=== PATIENT | female | born 2000 | race Caucasian/White ===

== ENCOUNTER 2023-09-06 10:51 | Emergency (ER) | payer BC ==
[2023-09-06 11:01] VITALS: BMI 20.4
[2023-09-06] MEDS: SODIUM CHLORIDE 0.9% 500 ML INFUS.BAG IV ONE (12:41)
[2023-09-06 13:05] LABS: BASO % 0.4 % (0-2.0); HEMATOCRIT 42.6 % (32.4-45.2); HEMOGLOBIN 14.5 GM/dL (10.7-15.3); LYMPH % 11.5 % (8-40); MCH 30.8 pg (25.7-33.7); MEAN CELL VOLUME 90.4 fl (80-96); MEAN PLT VOLUME 8.4 fl (7.5-11.1); MONO % 5.1 % (3.8-10.2); PLATELET COUNT 302 10^3/uL (134-434); RBC 4.71 M/mm3 (3.60-5.2); RDW 13.1 % (11.6-15.6); WHITE BLOOD COUNT 11.7 K/mm3 (4.0-10.0)
[2023-09-06 13:52] LABS: CHLORIDE 106 mmol/L (98-107); POTASSIUM 3.9 mmol/L (3.5-5.1); SODIUM 138 mmol/L (136-145)
[2023-09-06 13:56] LABS: ANION GAP 5 mmol/L (4-13); BLOOD UREA NITROGEN 9.4 mg/dL (7-18); CALCIUM 9.6 mg/dL (8.5-10.1); CO2 28 mmol/L (21-32); GLUCOSE,RANDOM 99 mg/dL (74-106)
[2023-09-06 13:57] LABS: ALBUMIN 4.8 g/dl (3.4-5.0)
[2023-09-06 13:59] LABS: SGOT/AST 16 U/L (15-37); SGPT/ALT 16 U/L (13-61)
[2023-09-06 14:00] LABS: CREATININE 0.7 mg/dL (0.55-1.3)
[2023-09-06 14:01] LABS: BILIRUBIN,TOTAL 0.7 mg/dL (0.2-1); TOT PROT 8.2 g/dl (6.4-8.2)
[2023-09-06 14:02] LABS: ALK PHOS 76 U/L (45-117)
[2023-09-06 14:25] VITALS: BP 115/75; PULSE 96; RESP 21; TEMP 98.3
== END 2023-09-06 14:29 | disposition home or self-care (01) ==
LOC: JER 10:51
DX: R55 Syncope and collapse (principal); R42 Dizziness and giddiness
CPT/HCPCS: 36415; 70450-TC; 80053; 82962; 84702; 85025; 93005; 93010; 99285-25